=== PATIENT | female | born 1990 | race Caucasian/White ===

== ENCOUNTER 2018-10-30 05:27 | Day surgery (SDC) | payer MEDICAID ==
[2018-10-29 16:13] LABS: BASOPHILS % (AUTO) 0.2 % (0-1); EOSINOPHILS # (AUTO) 0.2 X10'3 (0-0.9); LYMPHOCYTES # (AUTO) 0.4 X10'3 (1.1-4.8); LYMPHOCYTES % (AUTO) 5.7 % (21-51); MEAN CORPUSCULAR HEMOGLOBIN 30.4 PG (27.0-31.0); MEAN CORPUSCULAR VOLUME 89.4 FL (78-98); MEAN PLATELET VOLUME 9.6 FL (7.4-10.4); MONOCYTES # (AUTO) 0.5 X10'3 (0-0.9); MONOCYTES % (AUTO) 6.2 % (2-12); NEUTROPHILS # (AUTO) 6.6 X10'3 (1.8-7.7); NEUTROPHILS % (AUTO) 85.9 % (42-75); PRE OP HEMATOCRIT 38.6 % (35.0-45.0); PRE OP HEMOGLOBIN 13.1 g/dL (12.0-16.0); PRE OP PLATELET COUNT 201 X10'3 (140-440); RED BLOOD COUNT 4.31 X10'6 (4.20-5.60); RED CELL DISTRIBUTION WIDTH 12.1 % (11.5-14.5)
[2018-10-29 16:13] LABS: CLARITY,URINE CLEAR (Clear); COLOR,URINE STRAW (Yellow); GLUCOSE, URINE NEGATIVE (Neg); KETONES,URINE NEGATIVE (Neg); LEUKOCYTE ESTERASE ,URINE NEGATIVE (Neg); NITRITES, URINE NEGATIVE (Neg); OCCULT BLOOD,URINE TRACE-LYSED (Neg); PROTEIN,URINE NEGATIVE (Neg); UA COLLECTION TYPE CLN CATCH MIDSTREAM; UROBILINOGEN,URINE 0.2 E.U/dL (0.2-1.0)
[2018-10-29 16:27] LABS: ALBUMIN 3.8 G/DL (3.4-5.0); ALBUMIN/GLOBULIN RATIO 1.1 (1.1-1.5); ALKALINE PHOSPHATASE 66 IU/L (46-116); BLOOD UREA NITROGEN 8 MG/DL (7-18); BUN/CREATININE RATIO 12.7 (6.6-38.0); CHLORIDE 103 MMOL/L (99-107); CREATININE 0.63 MG/DL (0.40-0.90); PRE OP ALT 28 U/L (30-65); PRE OP ANION GAP 10 (8-16); PRE OP AST 14 U/L (10-37); PRE OP BILIRUB, TOTAL 0.3 MG/DL (0.0-1.0); PRE OP GLUCOSE 88 MG/DL (70-104); PRE OP POTASSIUM 3.8 MMOL/L (3.4-5.1); PRE OP SODIUM 139 MMOL/L (135-145); TOTAL CARBON DIOXIDE 26.5 MMOL/L (24-32); TOTAL PROTEIN 7.3 G/DL (6.4-8.2); eGFR > 90 ML/MIN
[2018-10-29 16:29] LABS: BACTERIA,URINE FEW /HPF (Neg); RBC,URINE 0-2 /HPF (0-2); SQUAMOUS EPITHELIAL CELL,UR MODERATE /LPF (FEW); WBC,URINE 0-4 /HPF (0-4)
[2018-10-29 16:49] LABS: HCG SERUM QL NEGATIVE
[2018-10-30] VITALS (9 sets, daily range): BP systolic 5–134; BP diastolic 3–85
[~2018-10-30] VITALS: Ht 160 cm; Wt 79.1 kg
[~2018-10-30 05:27] MED LIST: NO HOME MEDS; ringers solution, lacted 1,000 ML IV SCH
[2018-10-30] MEDS ORDERED: ceFOXitin 2 GM ADDvantage bag 100 ML IV ONE (05:30)
[2018-10-30] MEDS ORDERED: famotidine 20mg tablet PO ONE (05:30)
[2018-10-30] MEDS ORDERED: BUPIVAcaine/PF 2.5mg/ml (0.25%) 10ml vial ONE (06:49)
[2018-10-30] MEDS ORDERED: epiNEPHrine 1 mg/ml inj ONE (06:50)
[2018-10-30] MEDS ORDERED: sevoflurane 250ml liquid IH ONE (07:21)
[2018-10-30] MEDS ORDERED: ondansetron/PF 4mg/2ml inj ONE (07:21)
[2018-10-30] MEDS ORDERED: midazolam 2 mg/2 ml injection ONE (07:24)
[2018-10-30] MEDS ORDERED: fentaNYL/PF 50MCG/1 ML 2ML syringe ONE ×2 (07:24→07:37)
[2018-10-30] MEDS ORDERED: rocuronium 10mg/ml inj IV ONE (07:37)
[2018-10-30] MEDS ORDERED: propofol inj 20 ML IV ONE (07:37)
[2018-10-30] MEDS ORDERED: dexamethasone sod phosphate 4mg/ml inj. ONE (07:38)
[2018-10-30] MEDS ORDERED: ringers solution, lacted 1,000 ML IV SCH (08:03)
[2018-10-30] MEDS ORDERED: meperidine/PF 25mg/ml syringe IV PRN ×2 (08:05)
[2018-10-30] MEDS ORDERED: morphine 4 MG/ML inj SYRINge IV PRN ×2 (08:05)
[2018-10-30] MEDS ORDERED: ondansetron/PF 4mg/2ml inj IV PRN (08:05)
[2018-10-30] MEDS ORDERED: proCHLORperazine 10 MG/2 ml inj IV PRN (08:05)
[2018-10-30] MEDS ORDERED: neostigmine methylsulfate 1 MG/ML 10ml vial ONE (08:08)
[2018-10-30] MEDS ORDERED: glycopyrrolate 0.2mg/ml inj ONE (08:09)
[2018-10-30] MEDS: meperidine/PF 25mg/ml syringe IV PRN ×2 (08:25→08:54)
--- NOTE | 2018-10-30 08:25 | NUR ---
Received from OR via BED, accompanied by Anesthesiologist --JUD- and report given by Anesthesiolgist. PATIENT A&OX4, DENIES PAIN, V/S WNL, NEUROVASCULAR CHECKS INTACT, 20G PIV LUE, SCD ON, PERIPAD W/ SCANT DRAINAGE AND DEMABONDED LAP SITES TO ABDOMEN WITH NO S/S OF COMPLICATIONS
--- NOTE | 2018-10-30 09:25 | NUR ---
PATIENT A&OX4, DENIES PAIN, V/S WNL, NEUROVASCULAR CHECKS INTACT, 20G PIV LUE D/C WITH NO COMPLICATIONS OBSERVED, SCD OFF, DERMABONDED LAP SIGHTS OF ABDOMEN CDI. FRESH JAMES PAD GIVEN TO PATIENT. I HAVE REVIEWED D/C INSTRUCTIONS WITH PATIENT AND FAMILY AND THEY HAVE VERBALIZED UNDERSTANDING. PATIENT D/C HOME WITH FAMILY TO TRANSPORT AND ALL BELONGINGS..
== END 2018-10-30 09:25 | disposition home or self-care (01) ==
LOC: PAS 05:27
PROVIDERS: ATTEND Obstetrics & Gynecology Obstetrics
DX: Z30.2 Encounter for sterilization (principal); E66.9 Obesity, unspecified; Z68.30 Body mass index [BMI] 30.0-30.9, adult; Z87.891 Personal history of nicotine dependence; Z72.89 Other problems related to lifestyle; Z79.1 Long term (current) use of non-steroidal anti-inflammatories (NSAID); Z79.891 Long term (current) use of opiate analgesic; Z79.899 Other long term (current) drug therapy; Z98.890 Other specified postprocedural states
CPT/HCPCS: 36415; 58671; 80053; 81001; 82948; 84703; 85025; 86885; 86900; 86901; A4264; J0171; J0694; J1100; J2175; J2250; J2405; J2704; J2710; J3010; J3490; J7120; A7000

== ENCOUNTER 2024-04-27 09:12 | Emergency (ER) | payer MEDICAID ==
[~2024-04-27] VITALS: Ht 160 cm; Wt 77.0 kg
[~2024-04-27 09:12] MED LIST changes: -ringers solution, lacted 1,000 ML IV SCH
[2024-04-27 09:20] VITALS: BP 124/91; PULSE 77; O2SAT 98
[2024-04-27] MEDS ORDERED: CYCL-1 PO (10:11)
[2024-04-27 10:13] VITALS: RESP 16
[2024-04-27] MEDS: ketorolac trometh. 30mg/ml inj. IM ONE (10:13)
[2024-04-27 10:20] VITALS: TEMP 97.3
== END 2024-04-27 10:22 | disposition home or self-care (01) ==
LOC: ER 09:12
DX: S46.912A Strain of unspecified muscle, fascia and tendon at shoulder and upper arm level, left arm, initial encounter (principal); Z79.899 Other long term (current) drug therapy; X58.XXXA Exposure to other specified factors, initial encounter; Y93.89 Activity, other specified; Y92.89 Other specified places as the place of occurrence of the external cause; Y99.8 Other external cause status
CPT/HCPCS: 73030; 96372; 99283; J1885